=== PATIENT | female | born 1950 | race African-American/Black ===

== ENCOUNTER → 2019-06-01 | Outpatient (CLI) | payer BC, OTHER ==
[2015-04-07 00:59] VITALS: BP 156/84
--- NOTE | 2019-06-01 12:09 | RAD ---
Indication: Right thyroid nodules. TECHNIQUE: After expanding risks and benefits of the procedure, informed consent was obtained. Appropriate site was chosen over the neck. The skin was prepped and draped using usual sterile procedure. 1 percent lidocaine was used for local anesthesia. Under ultrasound guidance 4 FNA samples were obtained for each right thyroid lobe nodules. There is an: None FINDINGS: Right thyroid lobe nodules with internal punctate calcifications. 4 FNA samples of each nodule were obtained. IMPRESSION: Right thyroid nodule FNA without immediate complications. Pathology pending. Electronically signed by: Khalif Peterson DO (06/01/2019 12:05 PM) [facility]
--- NOTE | 2019-06-06 11:07 | PATHOLOGY ---
Note [facility] Accession Number: [id number] TESTS RESULT FLAG UNITS REF RANGE LAB Clinician Provided Cytology Information No. of containers..01 Other (Miscellaneous) Source: RT INF POLE THYROID DIAGNOSIS: RT INF POLE THYROID BETHESDA CATEGORY II. BENIGN. CLUSTERS OF BENIGN FOLLICULAR CELLS, SCANT COLLOID, MACROPHAGES, AND BLOOD IDENTIFIED. FAVOR ADENOMATOUS NODULE. THIS INTERPRETATION INCLUDES EVALUATION OF A CELL BLOCK. Pathologist ICD10: 02 R89.6 Signed out by: Quan Jules MD, Pathologist NPI- [id number] Performed by: Alex Ryan, Hypnotherapist ([facility]) Gross description: 01 30ML, RED, CLOUDY /LCS FLAG LEGEND: L-Low Normal,H-High Normal,LL-Alert Low,HH-Alert High <-Panic Low,>-Panic High,A-Abnormal,AA-Critical Abnormal Performed at: [facility] [place] [address] Mahad Asif MD, [address] [facility] [id number] [place] [address] Quan Jules MD, Specimen Comment: A duplicate report has been generated due to demographic updates. Performed at: [address], [place], [place] [id number] MD Mahad Asif MD Phone: [phone]
--- NOTE | 2019-06-06 11:07 | PATHOLOGY ---
Note [facility] Accession Number: [id number] TESTS RESULT FLAG UNITS REF RANGE LAB Clinician Provided Cytology Information No. of containers..01 Other (Miscellaneous) Source: RT MID THYROID DIAGNOSIS: RT MID THYROID BETHESDA CATEGORY II. BENIGN. CLUSTERS OF BENIGN FOLLICULAR CELLS, COLLOID, AND BLOOD IDENTIFIED. FAVOR ADENOMATOUS NODULE. THIS INTERPRETATION INCLUDES EVALUATION OF A CELL BLOCK. Pathologist ICD10: 02 R89.6 Signed out by: Quan Jules MD, Pathologist NPI- [id number] Performed by: Alex Ryan, Marine Geologist ([facility]) Gross description: 01 30ML, RED, CLOUDY /LCS FLAG LEGEND: L-Low Normal,H-High Normal,LL-Alert Low,HH-Alert High <-Panic Low,>-Panic High,A-Abnormal,AA-Critical Abnormal Performed at: [facility] [place] [address] [place] [address] Mahad Asif MD, 02 [facility] [place] [address] [place] [address] Quan Jules MD, Specimen Comment: A courtesy copy of this report has been sent to Specimen Comment: [phone], , . Specimen Comment: Report sent to ,DR BETHEA / DR VARELA Performed at: 01 [facility] [place] [address], [place], [place] [id number] MD Mahad Asif MD Phone: [phone]
== END ==
LOC: US 09:57
PROVIDERS: ATTEND Surgery
DX: E04.1 Nontoxic single thyroid nodule (principal)
CPT/HCPCS: 10005; 60300; 76942; 88173; 88305

== ENCOUNTER 2020-09-23 16:26 | Observation (INO) | payer BC ==
[~2020-09-23] VITALS: Ht 170.2 cm; Wt 92.4 kg
[2020-09-23] MEDS ORDERED: diphenhydrAMINE 50 MG/ML VIAL IVP ONE (16:45)
[2020-09-23] MEDS ORDERED: IV NORMAL SALINE 1000ML BAG 1,000 ML IV ONE ×2 (16:45→17:15)
[2020-09-23] MEDS ORDERED: FAMOTIDINE 20 MG/2 ML VIAL IVP ONE (16:45)
[2020-09-23] MEDS ORDERED: DEXAMETHASONE SOD PHOS 4 MG/ML VIAL IVP ONE (16:45)
[2020-09-23 16:59] LABS: BASO % 1 % (0-3); EOS % 0 % (0-3); HEMATOCRIT 43.5 % (36.0-47.0); HEMOGLOBIN 15.1 g/dL (12.0-15.5); LYMPH # 1.1 x10^3/uL (1.0-4.8); LYMPH % 15 % (24-48); MEAN CORPUSCULAR HEMOGLOBIN 32 pg (25-35); MEAN CORPUSCULAR HGB CONC 35 g/dL (31-37); MEAN CORPUSCULAR VOLUME 92 fL (79-100); MONO # 0.7 x10^3/uL (0.0-1.1); MONO % 9 % (0-9); NEUT # 5.8 x10^3/uL (1.8-7.7); NEUT % 76 % (31-73); PLATELET COUNT 271 x10^3/uL (140-400); RED BLOOD COUNT 4.73 x10^6/uL (3.50-5.40); RED CELL DISTRIBUTION WIDTH 13.4 % (11.5-14.5); WHITE BLOOD COUNT 7.6 x10^3/uL (4.0-11.0)
--- NOTE | 2020-09-23 17:08 | RAD ---
XR CHEST 1V INDICATION: Reason: fever / Spl. Instructions: / History: . COMPARISON STUDY: None. FINDINGS: Lungs: Normal lung volume. No pulmonary mass or consolidation. The tracheobronchial tree and hilar st ructures are normal. Pleura: No pleural effusion or pneumothorax. Heart and Mediastinum: The cardiomediastinal silhouette is normal. Mild tortuosity of the thoracic ao rta. IMPRESSION: No acute cardiopulmonary process. Electronically signed by: Taco Smith MD (09/23/2020 5:06 PM) [facility]
[2020-09-23] MEDS ORDERED: ONDANSETRON PF 4 MG/2 ML VIAL. IV PRN (17:15)
[2020-09-23 17:30] LABS: ALBUMIN 3.8 g/dL (3.4-5.0); ALBUMIN/GLOBULIN RATIO 0.7 (1.0-1.7); CALCIUM 9.3 mg/dL (8.5-10.1); CREATININE 1.1 mg/dL (0.6-1.0); GFR 59.2; MAGNESIUM 2.1 mg/dL (1.8-2.4); POTASSIUM 3.4 mmol/L (3.5-5.1); TOTAL BILIRUBIN 0.9 mg/dL (0.2-1.0); TOTAL PROTEIN 9.3 g/dL (6.4-8.2)
--- NOTE | 2020-09-23 17:39 | PHYS DOC ---
Past Medical History Past Medical History: Hypertension, Hypothyroid Past Surgical History: No Surgical History Smoking Status: Never Smoker Alcohol Use: None Drug Use: None General Adult EDM: Chief Complaint: OTHER COMPLAINTS HPI: HPI: Patient is a 69-year-old female presents with waking this morning with neck, tongue, head throat swelling upon waking this morning. Patient reports she currently is taking lisinopril. Patient does report she has been having a headache for the past 2 days. Reports presenting to urgent care today as swelling had not decreased. Urgent care provider instructed patient to present directly to the emergency department due to concern for continued swelling caus ing patient being unable to breathe. Patient denies any cold or cough. Reports she has felt warm recently. Denies known exposure to COVID-19. Review of Systems: Review of Systems: Constitutional: Denies chills; reports she has felt warm Eyes: Denies redness or eye pain HENT: Reports facial and tongue swelling Respiratory: Denies cough or shortness of breath Cardiovascular: Denies chest pain or palpitations GI: Denies abdominal pain, nausea, or vomiting : Denies dysuria or hematuria Musculoskeletal: Denies back pain or joint pain Integument: Denies rash or skin lesions Neurologic: Reports headache; denies focal weakness or sensory changes Complete systems were reviewed and found to be within normal limits, except as documented in this note. Current Medications: Current Medications Medications (Trade) Dose Ordered Sig/Tereza Start Time Stop Time Status Last Admin Dose Admin Dexamethasone Sodium Phosphate (Decadron) 10 mg 1X ONCE 09/23/20 16:45 09/23/20 16:52 DC 09/23/20 17:07 10 MG Diphenhydramine HCl (Benadryl) 50 mg 1X ONCE 09/23/20 16:45 09/23/20 16:52 DC 09/23/20 17:07 50 MG Famotidine (Pepcid Vial) 20 mg 1X ONCE 09/23/20 16:45 09/23/20 16:52 DC 09/23/20 17:09 20 MG Ondansetron HCl (Zofran) 4 mg PRN Q8HRS PRN 09/23/20 17:15 09/24/20 17:14 Sodium Chloride 1,000 ml @ 100 mls/hr 1X ONCE 09/23/20 17:15 09/24/20 03:14 Allergies: Allergies: Allergies Coded Allergies Type Severity Reaction Last Updated Verified No Known Drug Allergies 04/07/15 No Physical Exam: PE: Constitutional: Well developed, well nourished, no acute distress, non-toxic appearance HENT: Normocephalic, atraumatic, tongue swelling/angioedema appreciated, patient handling secretions well and without difficulty, no stridor Eyes: Conjunctiva normal, no discharge Neck: Normal range of motion, tenderness to palpation of anterior neck, edema appreciated. Lungs & Thorax: No respiratory distress, equal chest rise and fall Abdomen: Soft, no tenderness Skin: Warm, dry, no erythema, no rash, tactile warmth noted Extremities: No tenderness, ROM intact, no edema Neurologic: Alert and oriented X 3, no focal deficits noted Psychologic: Affect normal, judgment normal Current Patient Data: Labs: Laboratory Tests Test 09/23/20 16:41 White Blood Count 7.6 x10^3/uL (4.0-11.0) Red Blood Count 4.73 x10^6/uL (3.50-5.40) Hemoglobin 15.1 g/dL (12.0-15.5) Hematocrit 43.5 % (36.0-47.0) Mean Corpuscular Volume 92 fL (79-100) Mean Corpuscular Hemoglobin 32 pg (25-35) Mean Corpuscular Hemoglobin Concent 35 g/dL (31-37) Red Cell Distribution Width 13.4 % (11.5-14.5) Platelet Count 271 x10^3/uL (140-400) Neutrophils (%) (Auto) 76 % (31-73) H Lymphocytes (%) (Auto) 15 % (24-48) L Monocytes (%) (Auto) 9 % (0-9) Eosinophils (%) (Auto) 0 % (0-3) Basophils (%) (Auto) 1 % (0-3) Neutrophils # (Auto) 5.8 x10^3/uL (1.8-7.7) Lymphocytes # (Auto) 1.1 x10^3/uL (1.0-4.8) Monocytes # (Auto) 0.7 x10^3/uL (0.0-1.1) Eosinophils # (Auto) 0.0 x10^3/uL (0.0-0.7) Basophils # (Auto) 0.0 x10^3/uL (0.0-0.2) Laboratory Tests 09/23/20 16:41 EKG: EKG: [] Radiology/Procedures: Radiology/Procedures: PROCEDURE: CHEST AP ONLY XR CHEST 1V INDICATION: Reason: fever / Spl. Instructions: / History: . COMPARISON STUDY: None. FINDINGS: Lungs: Normal lung volume. No pulmonary mass or consolidation. The tracheobronchial tree and hilar structures are normal. Pleura: No pleural effusion or pneumothorax. Heart and Mediastinum: The cardiomediastinal silhouette is normal. Mild tortuosity of the thoracic aorta. IMPRESSION: No acute cardiopulmonary process. Electronically signed by: Taco Smith MD (09/23/2020 5:06 PM) [facility] PROCEDURE: CT SOFT TISSUE NECK W/CONTRAST CT NECK SOFT TISSUE WITH IV CONTRAST DATE: 09/23/2020 5:51 PM INDICATION: pain/swelling, eval for patricia's angina, lisinopril TECHNIQUE: Axial computed tomography of the neck with intravenous contrast according to the standard neck protocol. 70 cc of Omnipaque 300 was administered intravenously. One or more of the following dose reduction techniques were utilized: Automated exposure control (AEC), Adjustment of mA and/or kV according to patient size, Use of iterative reconstruction technique such as ASiR, CT scan done according to ALARA and image gently/image wisely COMPARISON: None. FINDINGS: Right submandibular subcutaneous stranding and myofascial thickening, with edema in the right submandibular, sublingual, and submental spaces with extension along the right parapharyngeal space. Thickening of the epiglottis and right aryepiglottic fold with effacement of the right piriform sinus. Mild narrowing of the supraglottic airway, which is deviated to the left. Asymmetric heterogeneous enhancement of the right submandibular gland. Fatty atrophy of the submandibular and parotid glands. Scattered subcentimeter lymph nodes are seen in the neck. None are pathologically enlarged or abnormally enhancing. The thyroid gland is normal. Fatty replacement of the parotid and mandibular glands. Asymmetric heterogeneous enhancement of the right submandibular gland. The muscles of the neck are normal. Vessels of the neck demonstrate normal course, caliber, and enhancement. The visualized aerodigestive tract is normal. The visualized posterior fossa and brain is unremarkable. The visualized orbits and paranasal sinuses are normal. Mild multilevel degenerative disc desiccation. Multilevel spinal canal stenosis secondary to disc protrusions and marginal osteophytes. Multilevel neural foraminal narrowing secondary to uncovertebral and facet arthrosis. The visualized lung apices are clear. IMPRESSION: Soft tissue swelling throughout the right submandibular and parapharyngeal regions extending down to include the epiglottis. No abscess. In the setting of lisinopril use, considerations would include angioedema. If there are signs of infection, supraglottitis and/or Patricia's angina could be considered. Supraglottic airway is deviated to the left with mild narrowing. FOR INTERNAL CODING PURPOSES Critical result: Findings discussed with emergency department at 09/23/2020 7:18 PM. RESULT CODE: (C) Electronically signed by: Taco Smith MD (09/23/2020 7:18 PM) [facility] Course & Med Decision Making: Course & Med Decision Making Pertinent Labs and Imaging studies reviewed. (See chart for details) Patient presents with report of facial and tongue swelling concerning for angioedema. Patient currently on lisinopril. Patient handling own secretions without difficulty. No stridor appreciated. Patient noted to be febrile upon arrival. Patient does report headache x2 days. Cannot exclude COVID-19 infection. COVID-[address] COVID-19 testing pending. Labs obtained and posted to chart. WBC and lactic acid within normal limits. Rapid influenza negative. UA without signs of infection. Chest x-ray stable. CT soft tissue neck obtained with findings consistent for angioedema. No focal abscesses appreciated. Doubt Patricia's angina. Patient requiring admission for further evaluation and treatment. Discussed with Dr. Quiles (hospitalist) who is in agreement with admission. Discussed findings and plan with patient, who acknowledges understanding and agreement. COVID-19 CRITERIA: The patient was evaluated during the global COVID-19 pandemic, and that diagnosis was suspected/considered upon their initial presentation. Their evaluation, treatment and testing was consistent with current guidelines for patients who present with complaints or symptoms that may be related to COVID-19. Dragon Disclaimer: Dragon Disclaimer: This electronic medical record was generated, in whole or in part, using a voice recognition dictation system. Departure Departure Impression: Primary Impression: Angioedema Qualified Codes: T78.3XXA - Angioneurotic edema, initial encounter Additional Impressions: Fever Qualified Codes: R50.9 - Fever, unspecified Suspected 2019 novel coronavirus infection Disposition: 09 ADMITTED INPT THIS HOSP Admitting Physician: PATITO Lake) Condition: GUARDED Referrals: DAYRON BETHEA MD (PCP) COVID-19 Assessment: COVID-19 Patient Risks: Age 65 or older: Yes Sign of co-morbidity: Yes Exp to person + for COVID: No Exp to PUI: No Travel from affected area: No Lower respiratory symptoms: No Fever: Yes Other: Yes (Headache) PPE Use: Full PPE with N95 mask or PAPR: Yes Critical Care Time Critical care time was 30 minutes which includes time at bedside, spent in discussion of patient's care with specialists and/or family members, with interpretation of laboratory and/or radiological studies and is exclusive of procedures. SERGIO FONTANA DO Sep 23, 2020 17:39
[2020-09-23] MEDS ORDERED: CONTRAST GIVEN. MC PRN (18:00)
[2020-09-23] MEDS ORDERED: IOHEXOL 300 MG/ML 100ML VIAL. IV ONE (18:00)
[2020-09-23 18:24] LABS: INFLUENZA A PATIENT NEGATIVE (NEGATIVE); INFLUENZA B PATIENT NEGATIVE (NEGATIVE)
[2020-09-23 18:53] LABS: BILIRUBIN,URINE NEGATIVE (NEG); CLARITY,URINE CLEAR; COLOR,URINE YELLOW; NITRITE,URINE NEGATIVE (NEG); PH,URINE 7.5 (<5.0-8.0); PROTEIN,URINE NEGATIVE (NEG-TRACE); UROBILINOGEN,URINE 0.2 mg/dL (0.2 mg/dL)
[2020-09-23 19:08] LABS: BACTERIA,URINE 0 /HPF (0-FEW); RBC,URINE 0 /HPF (0-2); WBC,URINE 0 /HPF (0-4)
--- NOTE | 2020-09-23 19:21 | RAD ---
CT NECK SOFT TISSUE WITH IV CONTRAST DATE: 09/23/2020 5:51 PM INDICATION: pain/swelling, eval for mukul's angina, lisinopril TECHNIQUE: Axial computed tomography of the neck with intravenous contrast according to the standard neck protocol. 70 cc of Omnipaque 300 was administered intravenously. One or more of the following do se reduction techniques were utilized: Automated exposure control (AEC), Adjustment of mA and/or kV according to patient size, Use of iterative reconstruction technique such as ASiR, CT scan done accor ding to ALA and image gently/image wisely COMPARISON: None. FINDINGS: Right submandibular subcutaneous stranding and myofascial thickening, with edema in the right submand ibular, sublingual, and submental spaces with extension along the right parapharyngeal space. Thicken ing of the epiglottis and right aryepiglottic fold with effacement of the right piriform sinus. Mild narrowing of the supraglottic airway, which is deviated to the left. Asymmetric heterogeneous enhancement of the right submandibular gland. Fatty atrophy of the submandib ular and parotid glands. Scattered subcentimeter lymph nodes are seen in the neck. None are pathologically enlarged or abnorma lly enhancing. The thyroid gland is normal. Fatty replacement of the parotid and mandibular glands. A symmetric heterogeneous enhancement of the right submandibular gland. The muscles of the neck are nor mal. Vessels of the neck demonstrate normal course, caliber, and enhancement. The visualized aerodige stive tract is normal. The visualized posterior fossa and brain is unremarkable. The visualized orbits and paranasal sinuses are normal. Mild multilevel degenerative disc desiccation. Multilevel spinal canal stenosis secondary to disc pro trusions and marginal osteophytes. Multilevel neural foraminal narrowing secondary to uncovertebral a nd facet arthrosis. The visualized lung apices are clear. IMPRESSION: Soft tissue swelling throughout the right submandibular and parapharyngeal regions extending down to include the epiglottis. No abscess. In the setting of lisinopril use, considerations would include an gioedema. If there are signs of infection, supraglottitis and/or Mukul's angina could be considered. Supraglottic airway is deviated to the left with mild narrowing. FOR INTERNAL CODING PURPOSES Critical result: Findings discussed with emergency department at 09/23/2020 7:18 PM. RESULT CODE: (C) Electronically signed by: Taco Smith MD (09/23/2020 7:18 PM) [facility]
[2020-09-23] MEDS ORDERED: LEVO50TA5 PO (20:40)
[2020-09-23] MEDS ORDERED: LISI1TAB37 PO (20:40)
[2020-09-23] MEDS ORDERED: METO25TA4 PO (20:40)
[2020-09-23] MEDS ORDERED: PSYL0.5215 PO (20:40)
[2020-09-23 21:33] VITALS: BP 174/87
[2020-09-23] MEDS: METOPROLOL TART IMMED RELEASE 25 MG TABLET. PO SCH (22:45)
[2020-09-23] MEDS ORDERED: PSYLLIUM HUSK (SUGAR FREE) 1 PKT PACKET PO PRN (22:45)
[2020-09-23 22:49] VITALS: BP 156/87
[2020-09-24 03:00] VITALS: BP 151/70
[2020-09-24] MEDS: LEVOTHYROXINE 50 MCG TABLET PO SCH ×2 (05:47→06:38)
[2020-09-24 07:00] VITALS: BP 146/82
[2020-09-24] MEDS ORDERED: diphenhydrAMINE 50 MG/ML VIAL IVP PRN (08:00)
[2020-09-24] MEDS ORDERED: POLYVINYL ALCOHOL 1.4% OPHTH SOLUTION 15ML BOTTLE. OU PRN (08:00)
[2020-09-24] MEDS: hydroCHLOROthiazide 25 MG TABLET PO SCH (08:59)
[2020-09-24] MEDS: FAMOTIDINE 20 MG/2 ML VIAL IVP SCH ×2 (08:59→20:22)
[2020-09-24] MEDS: METOPROLOL TART IMMED RELEASE 25 MG TABLET. PO SCH ×2 (08:59→20:23)
[2020-09-24] MEDS ORDERED: LISINOPRIL 20 MG TABLET PO SCH (09:00)
[2020-09-24] MEDS ORDERED: [UNRECOGNIZED DRUG - OTHER] PO SCH (09:00)
[2020-09-24] MEDS ORDERED: HYDROCHLOROTHIAZIDE PO SCH (09:00)
[2020-09-24] MEDS ORDERED: LISINOPRIL PO SCH (09:00)
[2020-09-24] MEDS ORDERED: AMPICILLIN/SULBACTAM 1.5 GM in IV NORMAL SALINE 50ML 50 ML IV ONE (09:30)
--- NOTE | 2020-09-24 10:30 | HP ---
ADMIT DATE: 09/23/2020 CHIEF COMPLAINT: Swollen tongue. HISTORY OF PRESENT ILLNESS: The patient is a pleasant 69-year-old female who is on lisinopril, presented with swollen tongue and lips. It appears she has angioedema. I discussed the case with ER physician. We admitted the patient. We are going to give her IV steroids, Pepcid and Benadryl. PAST MEDICAL HISTORY: Hypertension, hypothyroidism. ALLERGIES: SULFA AND TRIMETHOPRIM. FAMILY HISTORY: Diabetes. SOCIAL HISTORY: She does not drink, smoke or take drugs. MEDICATIONS: Reviewed, please refer to the MRAD. REVIEW OF SYSTEMS: GENERAL: No history of weight change, weakness or fevers. SKIN: No bruising, hair changes or rashes. HEENT: She complains of swollen lips. HEART: No history of palpitations, chest pain or shortness of breath on exertion. LUNGS: Denies cough, hemoptysis, wheezing or shortness of breath. GASTROINTESTINAL: Denies changes in appetite, nausea, vomiting, diarrhea or constipation. GENITOURINARY: No history of frequency, urgency, hesitancy or nocturia. NEUROLOGIC: Denies history of numbness, tingling, tremor or weakness. PSYCHIATRIC: No history of panic, anxiety or depression. ENDOCRINE: No history of heat or cold intolerance, polyuria or polydipsia. EXTREMITIES: Denies muscle weakness, joint pain, pain on walking or stiffness. PHYSICAL EXAMINATION: VITALS: Within normal limits and are stable. GENERAL: No apparent distress. Alert and oriented. HEENT: Her lips and tongue are little swollen. She also has bilateral parotid glands appear swollen. EYES: Extraocular muscles are intact, pupils are equally round and reactive to light and accommodation MUSCULOSKELETAL: Well developed, well nourished, good range of motion ENDOCRINE: No thyromegaly was palpated LYMPHATICS: No cervical chain or axillary nodes were noted HEMATOPOIETIC: No bruising NECK: Supple, no JVD, no thyromegaly was noted. LUNGS: Clear to auscultation in all lung bahena without rhonchi or wheezing. HEART: RRR, S1, S2 present. Peripheral pulses intact, no obvious murmurs were noted. ABDOMEN: Soft, nontender. Positive bowel sounds no organomegaly, normal bowel sounds. EXTREMITIES: Without any cyanosis, clubbing, or edema. Pedal pulses intact, Homans sign is negative. NEUROLOGIC: Normal speech, normal tone. A & O x3, moves all extremities, no obvious focal deficits. PSYCHIATRIC: Normal affect, normal mood. Stable. SKIN: No ulcerations or rashes, good skin turgor, no jaundice. VASCULAR: Good capillary refill, neurovascular bundle appears to be intact. ASSESSMENT AND PLAN: Angioedema and possible parotid infection as well. We will go ahead and give her IV steroids, IV Benadryl, IV Pepcid and empiric antibiotics, home meds, DVT prophylaxis. Full code. DENIS NUNEZ DO DR: SEPIDEH/rj JOB#: [id number] / [id number]
[2020-09-24 11:00] VITALS: BP 142/65
--- NOTE | 2020-09-24 13:05 | NUR ---
[facility] following for discharge planning. Spoke with RN and reviewed chart. Pt COVID pending. Pt from home with family. Pt admitted with a fever. Pt on a clear liquid diet and room air. Discharge plan is home, self-care when stable. [facility] following. Addendum: 09/24/20 at 1306 by JOANN LO Pt self-pay, Med Assist following.
[2020-09-24] MEDS ORDERED: ACETAMINOPHEN 650 MG/20.3 ML SOLUTION. PO PRN (13:15)
[2020-09-24] MEDS: methylPREDNISolone SOD SUCC PF 40 MG/ML VIAL. IV SCH ×2 (13:31→21:50)
[2020-09-24 15:00] VITALS: BP 124/66
[2020-09-24 18:54] VITALS: BP 129/76
[2020-09-24 23:23] VITALS: BP 122/66
[2020-09-25] MEDS: methylPREDNISolone SOD SUCC PF 40 MG/ML VIAL. IV SCH ×2 (05:45→14:13)
[2020-09-25] MEDS: LEVOTHYROXINE 50 MCG TABLET PO SCH (05:46)
[2020-09-25 07:00] VITALS: BP 126/70
[2020-09-25] MEDS: hydroCHLOROthiazide 25 MG TABLET PO SCH (08:15)
[2020-09-25] MEDS: METOPROLOL TART IMMED RELEASE 25 MG TABLET. PO SCH (08:15)
[2020-09-25] MEDS: FAMOTIDINE 20 MG/2 ML VIAL IVP SCH (08:15)
[2020-09-25 11:00] VITALS: BP 147/67
--- NOTE | 2020-09-25 12:57 | DS ---
DATE OF DISCHARGE: 09/25/2020 ADMISSION DIAGNOSIS: Angioedema. DISCHARGE DIAGNOSIS: Resolving angioedema. HOSPITAL COURSE: The patient is a pleasant 69-year-old female who has been taking lisinopril. She developed angioedema. We admitted the patient, gave her steroids, Pepcid and Benadryl. Over the next couple of days, she returned to her baseline and will be discharged home. DISPOSITION: Home. ACTIVITY: As tolerated. DIET: Low sodium. MEDICATIONS: Please see the MRAD. TOTAL TIME: 34 minutes. DENIS NUNEZ DO DR: SEPIDEH/rj JOB#: [id number] / [id number]
--- NOTE | 2020-09-25 15:44 | NUR ---
SW following for discharge planning. Spoke with RN and reviewed chart. Pt to discharge home today, self-care. No SW needs on discharge per RN.
== END 2020-09-25 14:30 | disposition still patient (30) ==
LOC: ER 16:26 → ED HOLD 17:00 → INTOOBSV 17:00 → 6 SOUTH 20:15
PROVIDERS: ADMIT Internal Medicine; ATTEND Internal Medicine
DX: T78.3XXA Angioneurotic edema, initial encounter (principal); Z20.828 Contact with and (suspected) exposure to other viral communicable diseases; I10 Essential (primary) hypertension; E03.9 Hypothyroidism, unspecified
CPT/HCPCS: 36415; 70491; 71045; 80053; 81001; 83605; 83735; 85025; 87040; 87804; 96361; 96365; 96375; 96376; 99291; G0378; J0295; J1100; J1200; J2920; J3490; J7030; Q9967; U0003; 96374; G0379